=== PATIENT | male | born 1985 | race Asian ===

== ENCOUNTER 2019-04-27 05:51 | Emergency (ER) | payer MEDICAID ==
[~2019-04-27] VITALS: Ht 167.6 cm; Wt 59.9 kg
[2019-04-27 06:08] VITALS: BP_SYST 131
--- NOTE | 2019-04-27 06:13 | NUR ---
Ambulatory to bed 2
--- NOTE | 2019-04-27 06:15 | NUR ---
Patient came to the ER due to ABD pain. Patient speaks little [place] but able to point towards the upper left midline as source of pain. Per patient pain is 5/10. Patient denies N/V or bloody stool. Patient not presenting any signs of acute distress.
--- NOTE | 2019-04-27 06:23 | NUR ---
ER Dr. Smith at bedside examining patient.
[2019-04-27] MEDS ORDERED: MAG-AL HYDROX/SIMETH 30 ML UDC PO ONE (06:30)
[2019-04-27] MEDS ORDERED: BELLADONNA ALKALOIDS/PHENOBARB 5 ML UDC PO ONE (06:30)
[2019-04-27] MEDS ORDERED: LIDOCAINE VISCOUS 2%, 15 ML UDC MM ONE (06:30)
[2019-04-27] MEDS ORDERED: KETOROLAC TROMETHAMINE 60 MG/2 ML VIAL IM ONE (06:30)
[2019-04-27] MEDS ORDERED: DICYCLOMINE HCL 10 MG/5 ML SOLUTION PO ONE (07:00)
[2019-04-27 07:24] LABS: BASOPHILS # (AUTO) 0.1 K/uL (0.0-0.2); BASOPHILS % (AUTO) 0.9 % (0.0-2.0); EOSINOPHILS # (AUTO) 0.4 K/uL (0.0-0.4); HEMATOCRIT 45.5 % (36-54); HEMOGLOBIN 15.4 g/dL (14.0-18.0); LYMPHOCYTES # (AUTO) 1.8 K/uL (1.0-5.5); MEAN CORPUSCULAR HEMOGLOBIN 31 pg (27-31); MEAN CORPUSCULAR HGB CONC 34 % (32-36); MEAN CORPUSCULAR VOLUME 92 fL (79.0-98.0); MONOCYTES # (AUTO) 0.6 K/uL (0.0-1.0); MONOCYTES % (AUTO) 6.8 % (1.7-9.3); NEUTROPHILS # (AUTO) 6.3 K/uL (1.8-7.7); NEUTROPHILS % (AUTO) 68.3 % (40.0-70.0); PLATELET COUNT (AUTO) 183 K/uL (130-430); RED BLOOD CELL COUNT(AUTO) 4.94 MIL/uL (4.2-6.2); RED CELL DISTRIBUTION WIDTH 13.1 % (9.0-15.0); WHITE BLOOD COUNT (AUTO) 9.3 K/uL (4.8-10.8)
--- NOTE | 2019-04-27 07:26 | NUR ---
Patient AAOx4, denies any SOB or pain at this time. No signs or symptoms of acute distress noted.
[2019-04-27 07:39] LABS: CALCIUM 8.4 mg/dL (8.4-11.0); CREATININE 0.61 mg/dL (0.55-1.30); POTASSIUM 3.2 mmol/L (3.5-5.1)
[2019-04-27 07:44] LABS: ALBUMIN 3.6 g/dL (3.4-4.8); TOTAL BILIRUBIN 0.4 mg/dL (0.0-1.0)
[2019-04-27] MEDS ORDERED: PIPERACILLIN/TAZO 3.375 GM in NS 50 ML IV ONE (07:45)
[2019-04-27] MEDS ORDERED: HYDROmorphone 1 MG INJ. 1 MG/ML AMPUL IVP PRN (08:00)
--- NOTE | 2019-04-27 08:10 | NUR ---
Patient will be admitted to care of Dr. Torres. Admitted to med-surg unit. Belongings list completed. Complete and up to date summary report printed. SBAR report to be given at bedside with opportunity for questions.
[2019-04-27] MEDS ORDERED: PIPERACILLIN/TAZOBACTAM 3.375 GM/VIAL (ZOSYN) IV ONE (08:40)
--- NOTE | 2019-04-27 08:45 | NUR ---
Unable to locate patient. Checked bathrooms and waiting room. Patient eloped.
[2019-04-27] MEDS ORDERED: KCL 20 mEq in D5/0.45NS 1000mL 1,000 ML IV SCH (09:00)
== END 2019-04-27 08:45 | disposition left against medical advice (07) ==
LOC: SED 05:51 → SMU 07:47 → UNDOADMIN 07:47 → UNDODISIN 08:45
DX: K80.50 Calculus of bile duct without cholangitis or cholecystitis without obstruction (principal)
CPT/HCPCS: 36415; 76700; 80053; 83690; 85025; 93005; 96372; 99284; J1885; J2001; J2543